=== PATIENT | male | born 1975 | race Caucasian/White ===

== ENCOUNTER 2020-05-08 14:00 | Outpatient (REF) | payer OTHER, SELFPAY | END 2020-05-08 14:01 | disposition home or self-care (01) | LOC: HO.LAB 14:00 | PROVIDERS: Visit Provider Internal Medicine | DX: Z20.828 Contact with and (suspected) exposure to other viral communicable diseases (principal) | CPT/HCPCS: C9803; U0003 ==

== ENCOUNTER 2020-05-19 13:00 | Outpatient (REF) | payer OTHER, SELFPAY | END 2020-05-19 13:01 | disposition home or self-care (01) | LOC: HO.LAB 13:00 | PROVIDERS: Visit Provider Internal Medicine | DX: Z20.828 Contact with and (suspected) exposure to other viral communicable diseases (principal) | CPT/HCPCS: C9803; U0003 ==

== ENCOUNTER 2023-04-12 18:59 | Emergency (ER) | payer OTHER, SELFPAY ==
[2023-04-12 19:24] VITALS: BP 139/83; PULSE 86; RESP 18; TEMP 37.2; O2SAT 96; BMI 23.5
--- NOTE | 2023-04-12 19:25 | ED_ITS ---
HPI - URI/Sore Throat General Chief Complaint: Upper Respiratory Symptoms Stated Complaint: cough, ? covid Time Seen by Provider: 04/12/23 19:50 Source: patient Mode of arrival: ambulatory Limitations: no limitations History of Present Illness HPI Narrative: 48 yo male with no medical history here with complaints of cough, chills, nasal congestion since Monday. COVID test was positive at home but wants clarificat ion. No difficulty breathing, chest pain, vomiting, diarrhea, abdominal pain, neck pain or neck stiffness, fevers, headache. Related Data Allergies Allergy/AdvReac Type Severity Reaction Status Date / Time omeprazole [From PRILOSEC] AdvReac Unknown NAUSEA Verified 04/12/23 19:29 Review of Systems Review of Systems: Yes all other systems are reviewed and are negative Constitutional: Constitutional: Reports no additional constitutional complaints, Denies body ache(s), Denies chills, Denies fever(s), Denies headache(s) and Denies weakness Eyes: Eyes: Reports no additional eye complaints and Denies change in vision ENT: Reports system reviewed and no additional complaints, except as documented, Denies dizziness, Denies headache(s), Denies nasal congestion, Denies nasal discharge and Denies neck pain Cardiovascular: Cardiovascular: Reports no additional cardiovascular complaints, Denies chest pain, Denies leg edema and Denies dyspnea Respiratory: Respiratory: Reports no additional respiratory complaints, Denies cough and Denies dyspnea Gastrointestinal: Gastrointestinal: Reports no additional gastrointestinal complaints, Denies abdominal pain, Denies diarrhea, Denies nausea and Denies vomiting Genitourinary: Genitourinary: Denies urinary incontinence Musculoskeletal: Musculoskeletal: Reports no additional musculoskeletal complaints, Denies back pain, Denies arthralgias, Denies joint swelling, Denies neck pain, Denies numbness and Denies tingling Integumentary/Breasts: Skin/Breast: Reports system reviewed and no additional complaints, except as docu and Denies rash Neurologic: Reports system reviewed and no additional complaints, except as documented, Denies Abnormal speech present, Denies dizziness, Denies headache(s), Denies numbness, Denies tingling and Denies weakness PMFSH Past Medical History Attestation statement: The following information was validated with the patient. Source: old records reviewed and nursing notes reviewed Physical Exam Vital Signs: Vital Signs: Last Vital Signs Temp 98.9 F 04/12/23 19:24 Pulse 86 04/12/23 19:24 Resp 18 04/12/23 19:24 BP 139/83 04/12/23 19:24 Pulse Ox 96 04/12/23 19:24 O2 Del Method Room Air 04/12/23 19:24 BMI result Body Mass Index 23.5 Const: General: cooperative, healthy appearing, comfortable and no acute distress Orientation/consciousness: patient oriented x3 Limitations: no limitations HEENT: Head: Yes normal to inspection Ears: hearing grossly normal bilaterally and TM's normal bilaterally General nose exam: Normal external nose present Face and sinus: Yes normal facial exam Mouth: Normal oral and palatal mucosa present Throat: Yes posterior oropharynx normal, Yes tonsils normal and Yes uvula midline Eyes: General: appearance normal, both eyes and all related structures Pupils: Equal, round and reactive pupils present Neck: Neck: Yes normal visual inspection, Yes full ROM and Yes no lymphadenopathy Chest: Chest palpation & inspection: normal inspection of the chest Resp: Effort & Inspection: normal respiratory effort Auscultation: clear to auscultation bilaterally Cardio: Rate: regular rate Rhythm: regular rhythm Peripheral pulses: Peripheral pulses 2+ throughout GI: Inspection: Yes normal to inspection Palpation (GI): Soft to palpation and nontender Auscultation: normal bowel sounds Back/Spine/Pelvis: Thoracic/Lumbar Spine: thoracic and lumbar spine normal to inspection Skin: General skin exam: no rashes or lesions noted Neuro: General: patient oriented x3, no focal motor deficits and normal sensation to monofilament Cranial nerves: Yes Equal, round and reactive pupils present Cognition (Neuro): normal cognition Speech: No Abnormal speech present Gait exam (Neuro): Normal gait present Motor exam (neuro): 5/5 motor strength present throughout Extrem: General: Yes normal to inspection Course Course Course Narrative: This is a rapid medical exam. Deferred additional HPI, ROS, PE to primary provider. 48 yo male here with complaints of cough, chills, nasal congestion since Monday. COVID test was positive at home but wants clarification. WIll obtain COVID screen. VSS Medical Decision Making Medical Decision Making MDM Narrative: 48 yo male with no medical history here with complaints of cough, chills, nasal congestion since Monday. COVID test was positive at home but wants clarification. No difficulty breathing, chest pain, vomiting, diarrhea, abdominal pain, neck pain or neck stiffness, fevers, headache. Exam is normal Lungs are clear Vital stable Will send testing for COVID Differential Diagnosis Differential Diagnoses: The differential diagnosis associated with the presentation includes COVID, viral syndrome Admission/Observation Consideration of admission/observation: Escalation of care including admission/observation considered COVID positive. No hypoxia or tachypnea requiring supplemental oxygen or advanced imaging or admission Lab Data MDM Lab Attestation statement: I reviewed the patient's lab results. COVID positive Labs: Lab Results 04/12/23 Range/Units 19:31 COVID-19 ([facility]) Positive A (Negative) COVID-19 Clin Com See Note Tests considered The following testing was considered but not selected: No hypoxia or tachypnea to suggest need for chest x-ray Prescription Management I considered prescription management with: Antiviral and Antibiotic Discharge Plan Discharge Clinical Impression: COVID-19 Patient Disposition: Home, Self-Care Instructions: COVID-19 (Coronavirus Disease 2019) (ED) Additional Instructions: Quarantine for 5 days then mask up for additional 5 more days. Take Motrin or Tylenol for any pain or fever Increase fluids, rest Return for chest pain, shortness of breath Referrals: Physician,Unknown J [Primary Care Provider] - 1 week
[2023-04-12 19:46] LABS: COVID-19 Test Positive (Negative); IDNOW Serial# 9DB6401D
== END 2023-04-12 20:00 | disposition home or self-care (01) ==
LOC: HO.ED 19:58
PROVIDERS: Nurse Practitioner Family; Emergency Provider Emergency Medicine
DX: U07.1 COVID-19 (principal)
CPT/HCPCS: 87635; 99282; 99283

== ENCOUNTER 2023-08-06 21:19 | Emergency (ER) | payer OTHER, SELFPAY ==
--- NOTE | ~2023-08-06 | CT_ITS ---
EXAMINATION: HEAD CT WITHOUT CONTRAST MAXILLOFACIAL CT WITHOUT CONTRAST CLINICAL INFORMATION: Blunt trauma. Sports injury. COMPARISON: 07/26/2018 TECHNIQUE: Contiguous axial imaging of the head was performed without the administration of IV contrast. Axial multidetector volumetric images were also obtained through the facial bones without contrast from the frontal sinuses through the mandible. Multiplanar reconstructed images in coronal and sagittal orientations were submitted. This CT examination was performed using dose optimization techniques as appropriate, variously including the following: *Automated exposure control *Adjustment of mA and/or kV according to patient size (this includes techniques or standardized protocols for targeted exams where dose is matched to indication/reason for exam; i.e. extremities or head) *Use of iterative reconstruction technique DOSE: 903 mGy-cm FINDINGS: HEAD: There is no evidence of acute intracranial hemorrhage or territorial infarction. No abnormal mass-effect or midline shift. No extra-axial fluid collections. Iqbal to white matter differentiation is well preserved. The ventricles are normal in size and configuration. There is no abnormal attenuation within the brain parenchyma. The soft tissues and osseous structures are normal. The sinuses and mastoid air cells are clear. MAXILLOFACIAL: There is a mildly comminuted fracture of the nasal bone with leftward deviation of the fragments and surrounding soft tissue swelling. A small fracture of the anterior nasal spine is also noted with rightward displacement of the small fragment. No additional facial fractures are identified. The mandible, maxilla, pterygoid plates, zygomatic arches, paranasal sinus law, and bony orbits are intact. The paranasal sinuses and mastoid air cells remain well-aerated. Orbits appear intact without intraluminal abnormalities. Intraconal and skull fat is normal. Globes appear symmetric. Pharyngeal soft tissues are unremarkable. CT/CT facial bones wo IV con IMPRESSION: 1. No acute intracranial pathology. 2. Mildly comminuted and displaced fractures of the nasal bone and anterior nasal spine.
[2023-08-06 21:24] VITALS: BP 141/77; PULSE 70; RESP 18; TEMP 36.8; O2SAT 97; BMI 21.8
[2023-08-06 23:36] VITALS: BP 141/79; PULSE 74; RESP 17; O2SAT 97
[2023-08-07 00:37] VITALS: BP 144/84; PULSE 58; RESP 18; TEMP 37.1; O2SAT 94
--- NOTE | 2023-08-07 00:50 | ED_ITS ---
HPI - Head Injury General Chief complaint: Head Injury Stated complaint: wasa hit in face w/ basketball, stuffed nose Time Seen by Provider: 08/07/23 00:28 Source: patient Mode of arrival: ambulatory Limitations: no limitations History of Present Illness HPI Narrative: Patient comes to the emergency room complaining of nose pain, sinus pressure. Patient states that 2 days ago patient was playing basketball, he got elbowed by another player in the nose. Patient has epistaxis which he was able to control. Today, patient was playing basketball again and he got hit in the nose again but this time with a basketball. Patient denies loss of consciousness, no epistaxis today. Patient is not on blood thinners. Related Data Previous Rx's Medication Instructions Recorded Lactobacillus rhamnosus GG 15 1 cap PO DAILY #14 caps 08/07/23 billion cell sprinkle capsule (Culturelle) amoxicillin 500 mg-potassium 1 tab PO BID #13 tabs 08/07/23 clavulanate 125 mg tablet (Augmentin) ibuprofen 600 mg tablet 600 mg PO TID PRN fever or pain 08/07/23 #20 tabs Allergies Allergy/AdvReac Type Severity Reaction Status Date / Time omeprazole [From PRILOSEC] AdvReac Unknown NAUSEA Verified 08/06/23 21:24 Review of Systems Review of Systems: Constitutional : No Weight loss, No Fever, No Chills, No Night Sweats, No Fatigue, No Malaise ENT/Mouth : No Hearing loss, No Ear Pain, complaining of nasal congestion, frontal sinus pain, nose pain, resolved epistaxis No Hoarseness, No sore throat, No Rhinorrhea, No Swallowing Difficulty Eyes: No Eye Pain, No Swelling, No Redness, No Foreign Body, No Discharge, No Vision Changes Cardiovascular : No Chest Pain, No SOB, No Dyspnea on Exertion, No Orthopnea, No Edema, No Palpitations Respiratory : No Cough, No Sputum, No Wheezing, No Smoke Exposure, No Dyspnea Gastrointestinal : No Nausea, No Vomiting, No Diarrhea, No Constipation, No abdominal Pain, No Hematochezia, No Melena Genitourinary : no irregular bleeding, No Dysuria, No Urinary Frequency, No Hematuria, No Urinary Incontinence, No Urgency, No Flank Pain, No Urinary Flow Changes, No Hesitancy Musculoskeletal : No joint pain, No Myalgias, No Joint Swelling Skin : No Skin Lesions, No rash Neuro : No Weakness, No Numbness, No Paresthesias, No Loss of Consciousness, No Dizziness, No Headache Psych : No Anxiety/Panic, No Depression, No SI/HI/AH/VH, No Social Issues, Heme/Lymph: No Bruising, No Bleeding,No Lymphadenopathy Endocrine : No Polyuria, No Polydipsia, No Temperature Intolerance PMFSH Social History Social History Advance Directives: No Advance Directives Information Provided: No Physical Exam Vital Signs: Vital Signs: Last Vital Signs Temp 98.8 F 08/07/23 00:37 Pulse 58 08/07/23 00:37 Resp 18 08/07/23 00:37 BP 144/84 H 08/07/23 00:37 Pulse Ox 94 08/07/23 00:37 O2 Del Method Room Air 08/07/23 00:37 BMI result Body Mass Index 21.8 Const: Other: Appearance: Alert. Oriented X3. No acute distress. Eyes: Pupils equal, round and reactive to light. ENT: Pharynx normal. Nasal bridge is mildly swollen, no ecchymosis. Patient has nasal congestion. Patient has sinus pain to palpation over the frontal sinuses and ethmoid sinus Neck: Normal inspection. Neck supple. No lymph nodes noted. No crepitus CVS: Normal heart rate and rhythm. Pulses normal. Normal S1 and S2 Respiratory: No respiratory distress. Breath sounds normal. No Wheezing. No rales Abdomen: Soft and nontender. No rigidity. No distention. Skin: Skin warm and dry. Normal skin color. Normal skin turgor. Extremities: No lower extremity edema. No Lacerations. No Rash Neuro: Oriented X 3. No motor deficit. No sensory deficit. Moving all extremities. No slurred speech. CN 2 through 12 grossly intact Psych: calm, cooperative, normal affect Medical Decision Making Medical Decision Making MDM Narrative: -my interpretation of CT scan of the head and facial bones: No intracranial bleed, slightly displaced fracture of the nasal bone. -patient was given p.o. Augmentin for the combination of nasal fracture and sinusitis. -patient was given IM Toradol for the pain. -patient states that he has an appointment pending next week with his primary care physician Differential Diagnosis Differential Diagnoses: The differential diagnosis associated with the present ation includes (Contusion, concussion, intracranial bleed, Fracture nose) Independent Interpretation I performed an independent interpretation of an: CT Scan Radiology Impression Discussion of test interpretation with radiology: I have reviewed the radiologist's reading. Radiologist Impression: HEAD: There is no evidence of acute intracranial hemorrhage or territorial infarction. No abnormal mass-effect or midline shift. No extra-axial fluid collections. Iqbal to white matter differentiation is well preserved. The ventricles are normal in size and configuration. There is no abnormal attenuation within the brain parenchyma. The soft tissues and osseous structures are normal. The sinuses and mastoid air cells are clear. MAXILLOFACIAL: There is a mildly comminuted fracture of the nasal bone with leftward deviation of the fragments and surrounding soft tissue swelling. A small fracture of the anterior nasal spine is also noted with rightward displacement of the small fragment. No additional facial fractures are identified. The mandible, maxilla, pterygoid plates, zygomatic arches, paranasal sinus law, and bony orbits are intact. The paranasal sinuses and mastoid air cells remain well-aerated. Orbits appear intact without intraluminal abnormalities. Intraconal and skull fat is normal. Globes appear symmetric. Pharyngeal soft tissues are unremarkable. CT/CT head/brain wo IV con IMPRESSION: 1. No acute intracranial pathology. 2. Mildly comminuted and displaced fractures of the nasal bone and anterior nasal spine. Discharge Plan Discharge Clinical Impression: Closed fracture nose, Sinusitis Patient Disposition: Home, Self-Care Instructions: Nasal Fracture (ED), Sinusitis (ED) Additional Instructions: Please follow-up with your primary care physician tomorrow. If you have any worsening or new symptoms, please return to the emergency room or call 911 Prescriptions: New amoxicillin-pot clavulanate [Augmentin] 500-125 mg tablet 1 tab PO BID Qty: 13 0RF Culturelle 15 billion cell capsule, sprinkle 1 cap PO DAILY Qty: 14 0RF ibuprofen 600 mg tablet 600 mg PO TID PRN (Reason: fever or pain) Qty: 20 0RF Stand Alone Forms: Work/School Release
[2023-08-07] MEDS: Ketorolac Tromethamine 60 MG/2 ML VIAL IM (01:19)
[2023-08-07] MEDS: Amoxicillin/Potassium Clav 500 MG TABLET PO (01:19)
[2023-08-07 01:23] VITALS: BP 124/83; PULSE 61; RESP 18; TEMP 36.9
== END 2023-08-07 01:43 | disposition home or self-care (01) ==
PROVIDERS: Emergency Provider Emergency Medicine
DX: S02.2XXA Fracture of nasal bones, initial encounter for closed fracture (principal); J32.9 Chronic sinusitis, unspecified; W50.0XXA Accidental hit or strike by another person, initial encounter; Y93.67 Activity, basketball; Y92.9 Unspecified place or not applicable; Y99.9 Unspecified external cause status
CPT/HCPCS: 70450; 70486; 96372; 99284; J1885

== ENCOUNTER 2024-02-10 11:35 | Emergency (ER) | payer OTHER, SELFPAY ==
--- NOTE | ~2024-02-10 | XR_ITS ---
EXAMINATION: XR KNEE, RIGHT CLINICAL INFORMATION: Right knee pain. COMPARISON: None available. TECHNIQUE: Four views of the right knee. FINDINGS: No acute fracture or dislocation. Mild medial compartment joint space narrowing. Tiny medial and patellofemoral compartment marginal osteophytes. No osseous erosion. Small tortuosity enthesophyte. Trace joint effusion. XR/XR knee RT 4V IMPRESSION: Mild medial and patellofemoral compartment osteoarthritis. Trace joint effusion. Electronically signed by: Doug Spain MD 02/10/2024 01:14 PM EDT
[2024-02-10 11:38] VITALS: BP 154/64; PULSE 55; RESP 16; TEMP 36.6; O2SAT 99; BMI 22.5
--- NOTE | 2024-02-10 11:40 | ED.LOWEXIN ---
HPI - Extremity Injury (Lower) General Chief Complaint: Extremity Injury, Lower Stated Complaint: knee pain Time Seen by Provider: 02/10/24 11:58 Source: patient and RN notes reviewed Mode of arrival: ambulatory Limitations: no limitations History of Present Illness ED Provider: Neelam Orellana PA-C HPI Narrative: This is a 48-year-old male, with no known medical problems, who presents emergency department with complaints of right knee pain x2 days. Patient denies any recent trauma or injury however he does report that he believes his pants were too tight and caused him to have pain in his knee. He states that he plays basketball on a regular basis, denies any known twisting injury, or falls. He reports pain worsens with palpation. He denies any fevers, chills, or injury to the knee in the past. No other complaints or concerns at this time. MD complaint: knee injury Onset (ago): day(s) Type of Injury: unknown Associated symptoms: swelling Other symptoms: none Related Data Previous Rx's ?Medication ?Instructions ?Recorded Lactobacillus rhamnosus GG 15 1 cap PO DAILY #14 caps 08/07/23 billion cell sprinkle capsule (Culturelle) amoxicillin 500 mg-potassium 1 tab PO BID #13 tabs 08/07/23 clavulanate 125 mg tablet (Augmentin) ibuprofen 600 mg tablet 600 mg PO TID PRN fever or pain 08/07/23 #20 tabs acetaminophen 650 mg 650 mg PO Q8H PRN pain #30 tabs 02/10/24 tablet,extended release (Tylenol 8 Hour) ibuprofen 600 mg tablet 600 mg PO Q6H PRN pain #30 tabs 02/10/24 Allergies Allergy/AdvReac Type Severity Reaction Status Date / Time omeprazole [From PRILOSEC] AdvReac Unknown NAUSEA Verified 02/10/24 11:41 Review of Systems Review of Systems: Yes all other systems are reviewed and are negative Constitutional: Constitutional: Reports as per HPI Physical Exam Vital Signs: Vital Signs: Last Vital Signs Temp 97.9 F 02/10/24 13:54 Pulse 55 02/10/24 13:54 Resp 16 02/10/24 13:54 BP 154/64 H 02/10/24 13:54 Pulse Ox 99 02/10/24 13:54 O2 Del Method Room Air 09/21/24 13:54 BMI result Body Mass Index 22.5 Const: General: cooperative, comfortable and no acute distress Orientation/consciousness: patient oriented x3 Limitations: no limitations HEENT: Head: Yes normal to inspection, Yes normocephalic and Yes atraumatic Ears: hearing grossly normal bilaterally General nose exam: Normal external nose present Face and sinus: Yes normal facial exam Mouth: Normal oral and palatal mucosa present, oropharynx normal and moist mucous membranes Throat: Yes posterior oropharynx normal Eyes: General: appearance normal, both eyes and all related structures Eyelids: Yes eyelids normal Conjunctivae: conjunctivae normal Sclerae: sclerae normal Pupils: Equal, round and reactive pupils present EOM: EOMs intact bilaterally Neck: Neck: Yes normal visual inspection, Yes full ROM and Yes no lymphadenopathy Lymphatic: no lymphadenopathy noted Chest: Chest palpation & inspection: normal inspection of the chest Resp: Effort & Inspection: normal respiratory effort and able to speak in complete sentences Auscultation: clear to auscultation bilaterally, no crackles, no rales, no rhonchi and no wheezes Cardio: Rate: regular rate Rhythm: regular rhythm Heart sounds: S1 normal heart sound present and S2 normal heart sound present GI: Inspection: Yes normal to inspection Skin: General skin exam: no rashes or lesions noted Trauma: no lacerations or abrasions Wounds: no wounds Neuro: General: patient oriented x3 and moves all extremities Cranial nerves: Yes Equal, round and reactive pupils present Extrem: Other: Right knee, nonerythematous, with mild tenderness palpation along the medial and lateral joint line, full range of motion. No joint laxity with varus and valgus strain. Negative anterior-posterior drawer test. General: Yes normal to inspection Right upper extremity: normal to inspection Left upper extremity: normal to inspection Right lower extremity: normal to inspection Left lower extremity: normal to inspection Course Course Course Narrative: This is a rapid medical exam performed by [place] NP: Additional HPI, ROS, PE not included below will be deferred to primary provider. Patient is a 48-year-old male presenting to the ED with right knee pain after playing basketball yesterday. Denies twisting knee or falling onto it. Plan: xray Medical Decision Making Medical Decision Making MDM Narrative: This is a 48-year-old male, with no known medical problems, who presents emergency department with complaints of right knee pain. Unknown injury. Differential diagnoses include knee strain, sprain, contusion. Less likely septic arthritis as patient's knee is nonerythematous, with full range of motion. Will obtain x-rays to rule out any bony abnormalities. X-rays revealing mild medial and patellofemoral compartment osteoarthritis. There is a trace joint effusion discussed findings with patient. Given Rashad wrap, and advised to follow-up with PCP as needed. Patient understands agrees with plan. Patient stable for discharge. Differential Diagnosis Differential Diagnoses: The differential diagnosis associated with the presentation includes See above Radiology Impression Discussion of test interpretation with radiology: I have reviewed the radiologist's reading. Radiologist Impression: XR/XR knee RT 4V IMPRESSION: Mild medial and patellofemoral compartment osteoarthritis. Trace joint effusion. Electronically signed by: Doug Spain MD 02/10/2024 01:14 PM EDT RP Workstation: [id number] Dictated By: Doug Spain MD Discharge Plan Discharge Clinical Impression: Acute pain of right knee Patient Disposition: Home, Self-Care Instructions: Knee Pain (ED), Arthralgia (ED) Additional Instructions: You were seen in the emergency department for right knee pain and swelling. Your x-ray shows some evidence of mild arthritis. This is a normal finding. Please rest, ice, use Rashad wrap, and elevate your knee as needed for pain and symptoms. You can alternate between ibuprofen and or Tylenol as needed for pain. If you continue to have ongoing issues with your knee, you can follow-up with the orthopedic team, you need to call to make an appointment. If any new or worsening symptoms occur including but not limited to inability to move your leg, fevers, chills, redness, worsening swelling, please return for re-evaluation. Prescriptions: New ibuprofen 600 mg tablet 600 mg PO Q6H PRN (Reason: pain) Qty: 30 0RF acetaminophen [Tylenol 8 Hour] 650 mg tablet extended release 650 mg PO Q8H PRN (Reason: pain) Qty: 30 0RF No Action amoxicillin-pot clavulanate [Augmentin] 500-125 mg tablet 1 tab PO BID Qty: 13 0RF Culturelle 15 billion cell capsule, sprinkle 1 cap PO DAILY Qty: 14 0RF ibuprofen 600 mg tablet 600 mg PO TID PRN (Reason: fever or pain) Qty: 20 0RF Referrals: [facility] [place]Provider Group] Neelam Orellana PA [Emergency Midlevel Provider] - Interventions: ED Discharge Assessment Last Done: 02/10/24 13:54 Discharge Date/Time: 02/10/24 13:54 Print Language: Mongolian
[2024-02-10 13:54] VITALS: BP 154/64; PULSE 55; RESP 16; TEMP 36.6; O2SAT 99
== END 2024-02-10 13:54 | disposition home or self-care (01) ==
PROVIDERS: Emergency Provider Emergency Medicine
DX: M25.561 Pain in right knee (principal)
CPT/HCPCS: 73564; 99283

== ENCOUNTER 2024-03-07 08:40 | Outpatient (REF) | payer OTHER, SELFPAY | END 2024-03-07 08:41 | disposition home or self-care (01) | LOC: HO.HOSX 08:40 | PROVIDERS: Visit Provider Physician Assistant | DX: M25.561 Pain in right knee (principal); M94.261 Chondromalacia, right knee | CPT/HCPCS: 73560; 99202 ==

== ENCOUNTER 2024-03-07 10:05 | Outpatient (AMB) | payer OTHER, SELFPAY ==
--- NOTE | 2024-03-07 10:31 | MHC.OFFVIS ---
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 Patient reports that he was hit in the knee while playing basketball. He was seen at [facility] [place] [facility] where xrays were taken and referred to orthopedics. He has discomfort that feels like a pulling sensation located at the anterior aspect of knee. Denies numbness or tingling. 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 He reports he was hit in the knee while playing basketball. He was seen at ER where x-rays were performed and he was referred to our office. He currently states he has discomfort and a pulling sensation at the anterior aspect of his knee. He denies any numbness or tingling. [facility] Social History (Updated 03/07/24 @ 10:37 by ROWENA Tripathi) Patient Tobacco Use Status: Former Tobacco user Current occupational status: unemployed Review of Systems Const All systems reviewed & are unremarkable except as noted in HPI and below Physical Exam Vital Signs: BMI result Body Mass Index 22.5 Const General: cooperative, healthy appearing, comfortable, no acute distress, well developed and alert Orientation/consciousness: patient oriented x3 HEENT Head: Yes normal to inspection, Yes normocephalic and Yes atraumatic Eyes General: appearance normal, both eyes and all related structures Resp Effort & Inspection: normal respiratory effort and able to speak in complete sentences Cardio Rate: regular rate Peripheral pulses: Peripheral pulses 2+ throughout GI Palpation (GI): Soft to palpation Skin Lesions: no lesions Rashes: no rashes Neuro General: patient oriented x3 Extrem Other: Right knee: Skin intact, no erythema or joint effusion. No tenderness along the medial and lateral joint line. Full ROM with crepitus. Negative Dimitri?s. No ligamentous laxity. NVI. ? Results Reviewed Results Reviewed: Xrays were obtained in the office today and personally reviewed by me of the right knee show mild patellar lateralization Assessment & Plan Assessment & Plan (1) Chondromalacia, right knee: Code(s): M94.261 - Chondromalacia, right knee Category: Medical Plan He was fit for a Genumed knee brace. He will wear this with activities. He can increase activities as tolerated and if symptoms persist or worsen, patient will contact the office, otherwise follow-up as needed. Orders: Orders XR knee RT 1V Today M25.561 - Pain in right knee Patient Instructions: Scribed for David Guzman PA-C, by Richard Booth medical staff services manager, on 03/07/2024 at 10:00 AM EST.? I, David Guzman PA-C, have personally reviewed and agree with the information entered by the scribe. Coding Level of Care Code New Pt Level 3 (42582) Complex EM visit Add On G2211 Diagnoses Chondromalacia, right knee M94.261
[2024-03-07 10:40] VITALS: BMI 22.5
== END 2024-03-07 11:54 | disposition home or self-care (01) ==
PROVIDERS: Visit Provider Physician Assistant
DX: M94.261 Chondromalacia, right knee (principal)
CPT/HCPCS: 99203; G2211

== ENCOUNTER 2024-10-09 16:13 | Emergency (ER) | payer OTHER, SELFPAY ==
--- NOTE | ~2024-10-09 | XR_ITS ---
EXAMINATION: XR HIP, LEFT CLINICAL INFORMATION: L upper thigh pain COMPARISON: None available. TECHNIQUE: AP pelvis, and 2 views of the left hip. FINDINGS: No fracture. Alignment is anatomic. Hip joint space is maintained. Soft tissues are unremarkable. XR/XR hip LT w PEL1V IMPRESSION: Normal left hip. Electronically signed by: Micah Oconnor MD 10/09/2024 04:33 PM EDT RP
--- NOTE | 2024-10-09 16:15 | ED.LOWEXIN ---
HPI - Extremity Injury (Lower) General Chief Complaint: Extremity Injury, Lower Stated Complaint: L Side Pain, L Leg Pain Time Seen by Provider: 10/09/24 16:37 Source: patient, RN notes reviewed and old records reviewed Mode of arrival: ambulatory History of Present Illness ED Provider: Isa Alvarez PA-C HPI Narrative: 49-year-old male with no significant past medical history presenting to the ED complaining of left upper thigh/buttock pain x 3 days s/p playing basketball yesterday and on Monday. Admits to repetitive jumping. Denies known injury, trauma, fall, numbness, tingling, weakness, incontinence/retention Related Data Previous Rx's ?Medication ?Instructions ?Recorded Lactobacillus rhamnosus GG 15 1 cap PO DAILY #14 caps 08/07/23 billion cell sprinkle capsule (Culturelle) amoxicillin 500 mg-potassium 1 tab PO BID #13 tabs 08/07/23 clavulanate 125 mg tablet (Augmentin) ibuprofen 600 mg tablet 600 mg PO TID PRN fever or pain 08/07/23 #20 tabs acetaminophen 650 mg 650 mg PO Q8H PRN pain #30 tabs 02/10/24 tablet,extended release (Tylenol 8 Hour) ibuprofen 600 mg tablet 600 mg PO Q6H PRN pain #30 tabs 02/10/24 acetaminophen 500 mg tablet 500 mg PO Q6H PRN fever or pain 10/09/24 (Tylenol Extra Strength) #14 tabs cyclobenzaprine 5 mg tablet 5 mg PO Q8H PRN pain (scale score 10/09/24 7-10) 5 days #14 tabs lidocaine 5 % topical patch 1 patch topical DAILY PRN pain #30 10/09/24 (Lidoderm) ea naproxen 500 mg tablet 500 mg PO BID PRN pain 10 days #20 10/09/24 tabs Allergies Allergy/AdvReac Type Severity Reaction Status Date / Time omeprazole [From PRILOSEC] AdvReac Unknown NAUSEA Verified 10/09/24 16:18 Review of Systems Review of Systems: Yes all other systems are reviewed and are negative Constitutional: Constitutional: Reports as per [facility] Past Medical History Attestation statement: The following information was validated with the patient. Source: old records reviewed Social History Social History Patient Tobacco Use Status: Former Tobacco user Advance Directives: No Advance Directives Information Provided: Yes Do you have a plan to hurt others: No Plan Current occupational status: unemployed Physical Exam Vital Signs: Vital Signs: Last Vital Signs Temp 98.2 F 10/09/24 16:16 Pulse 65 10/09/24 16:16 Resp 18 10/09/24 16:16 BP 134/71 10/09/24 16:16 Pulse Ox 99 10/09/24 16:16 O2 Del Method Room Air 10/09/24 16:16 BMI result Body Mass Index 23.2 Const: General: cooperative, healthy appearing and no acute distress Orientation/consciousness: patient oriented x3 Limitations: no limitations HEENT: Head: Yes normal to inspection and Yes atraumatic Ears: hearing grossly normal bilaterally General nose exam: Normal external nose present Face and sinus: Yes normal facial exam Eyes: General: appearance normal, both eyes and all related structures EOM: EOMs intact bilaterally Neck: Neck: Yes normal visual inspection and Yes no meningeal signs Resp: Effort & Inspection: normal respiratory effort and no respiratory distress Cardio: Rate: regular rate : General: Yes no CVA tenderness Back/Spine/Pelvis: Other: No midline cervical/thoracic/lumbar spinous tenderness/step-off or deformity. + left buttock reproducible tenderness Back: no CVA tenderness Skin: Rashes: no rashes Wounds: no wounds Neuro: General: patient oriented x3, tone normal and no meningeal signs Cranial nerves: Yes CN's II-XII intact bilaterally Gait exam (Neuro): Antalgic gait present Motor exam (neuro): 5/5 motor strength present throughout Extrem: Other: No swelling, rash, erythema. + reproducible IT band tenderness General: Yes normal to inspection Course Course Course Narrative: This is a Rapid Medical Exam performed in triage by Isa Alvarez PA-C. Full HPI, ROS and PE to be performed by primary ED provider. 49-year-old male presenting to the ED c/o L thigh pain s/p playing basketball yesterday & Monday. denies fall. Admits was jumping. PE: ambulating w/limping gait, no deformity, +L upper thigh reproducible tenderness Plan: XR 1638--XR hip LT w PEL1V IMPRESSION: Normal left hip. Results discussed with patient including worrisome signs and symptoms and strict return precautions, and when to return to the emergency department. They verbalized understanding and feel safe for discharge at this time. Medical Decision Making Medical Decision Making MDM Narrative: 49-year-old male with no significant past medical history presenting to the ED complaining of left upper thigh/buttock pain x 3 days s/p playing basketball yesterday and on Monday. On exam vital signs stable, NAD, nontoxic appearing, physical exam as noted above, walking with antalgic gait. Reproducible IT band tenderness. No appreciable deformity. No midline spinous tenderness or red flag symptoms. Concern for MSK pain/strain vs tendinopathy vs ligamental injury Plan: X-ray, PCP follow up Please refer to course for remaining clinical decision making, interpretation of labs/imaging results, and discussions with consultants and/or family members. Differential Diagnosis Differential Diagnoses: The differential diagnosis associated with the presentation includes As above Independent Interpretation I performed an independent interpretation of an: Plain X-Ray Radiology Impression Discussion of test interpretation with radiology: I have reviewed the radiologist's reading. External Record Review External record reviewed: Inpatient record, Office record, Outpatient record, Prior outpatient labs, Prior outpatient radiology, Primary care record and Outside ED record Tests considered The following testing was considered but not selected: As above Prescription Management I considered prescription management with: Pain Medication Chronic Conditions Patient?s care impacted by: Other Social Determinants Patient?s care significantly limited by Social Determinants of Health including: Other Social Determinant of Health Discharge Plan Discharge Clinical Impression: Muscle strain, Iliotibial band syndrome Patient Disposition: Home, Self-Care Instructions: Muscle Strain (DC) Additional Instructions: Your pain is likely musculoskeletal Flexeril is a muscle relaxer, take at night as it makes you drowsy, do not drive, drink alcohol, or operate machinery while taking it Naproxen as an anti-inflammatory / pain medication, take with food Lidoderm patches are numbing patches, apply to painful area In addition take Tylenol at home If symptoms persist or worsen, pain becomes unbearable, you developed urinary retention or incontinence, or weakness return to the ED Prescriptions: New acetaminophen [Tylenol Extra Strength] 500 mg tablet 500 mg PO Q6H PRN (Reason: fever or pain) Qty: 14 0RF lidocaine [Lidoderm] 5 % adhesive patch,medicated 1 patch topical DAILY MDD remove after 12 hours PRN (Reason: pain) Qty: 30 0RF Rx Instructions: leave on most painful area for up to 12 hrs naproxen 500 mg tablet 500 mg PO BID PRN (Reason: pain) 10 Days Qty: 20 0RF cyclobenzaprine 5 mg tablet 5 mg PO Q8H PRN (Reason: pain (scale score 7-10)) 5 Days Qty: 14 0RF No Action ibuprofen 600 mg tablet 600 mg PO Q6H PRN (Reason: pain) Qty: 30 0RF acetaminophen [Tylenol 8 Hour] 650 mg tablet extended release 650 mg PO Q8H PRN (Reason: pain) Qty: 30 0RF amoxicillin-pot clavulanate [Augmentin] 500-125 mg tablet 1 tab PO BID Qty: 13 0RF Culturelle 15 billion cell capsule, sprinkle 1 cap PO DAILY Qty: 14 0RF ibuprofen 600 mg tablet 600 mg PO TID PRN (Reason: fever or pain) Qty: 20 0RF Referrals: Physician,Unknown J [Primary Care Provider] - Interventions: ED Discharge Assessment Last Done: 10/09/24 16:49 Discharge Date/Time: 10/09/24 16:50 Print Language: Uzbek
[2024-10-09 16:16] VITALS: BP 134/71; PULSE 65; RESP 18; TEMP 36.8; O2SAT 99; BMI 23.2
[2024-10-09 16:49] VITALS: BP 134/71; PULSE 65; RESP 18; TEMP 36.8; O2SAT 99
== END 2024-10-09 16:50 | disposition home or self-care (01) ==
PROVIDERS: Emergency Provider Emergency Medicine
DX: M76.32 Iliotibial band syndrome, left leg (principal); M79.652 Pain in left thigh; R10.2 Pelvic and perineal pain; M25.552 Pain in left hip; Z87.891 Personal history of nicotine dependence
CPT/HCPCS: 73502; 99282; 99283

== ENCOUNTER → 2024-10-09 16:17 | Outpatient (BNV) | payer OTHER, SELFPAY | PROVIDERS: Emergency Provider Emergency Medicine; Visit Provider Radiology Diagnostic Radiology | DX: M25.552 Pain in left hip (principal) | CPT/HCPCS: 73502 ==

== ENCOUNTER 2024-11-12 17:03 | Emergency (ER) | payer OTHER, SELFPAY ==
[2024-11-12 17:45] VITALS: BP 141/87; PULSE 61; RESP 16; TEMP 37.4; O2SAT 96; BMI 22.9
--- NOTE | 2024-11-12 17:48 | ED_ITS ---
HPI - Wound/Laceration General Chief Complaint: General Medical Stated Complaint: swollen nose and upper lip Time Seen by Provider: 11/13/24 01:34 Source: patient, RN notes reviewed and old records reviewed Mode of arrival: ambulatory Limitations: no limitations History of Present Illness ED Provider: Parveen HPI narrative: 49-year-old male presents for evaluation of an abscess to his left nostril. He reports that it has been there for about 4 days. He denies any trauma to the area. Denies any cocaine abuse. Denies any fevers or chills. He reports that he put hydrogen peroxide on the area without any improvement. Related Data Previous Rx's ?Medication ?Instructions ?Recorded Lactobacillus rhamnosus GG 15 1 cap PO DAILY #14 caps 08/07/23 billion cell sprinkle capsule (Culturelle) amoxicillin 500 mg-potassium 1 tab PO BID #13 tabs clavulanate 125 mg tablet (Augmentin) ibuprofen 600 mg tablet 600 mg PO TID PRN fever or p ain 08/07/23 #20 tabs acetaminophen 650 mg 650 mg PO Q8H PRN pain #30 t abs 02/10/24 tablet,extended release (Tylenol 8 Hour) ibuprofen 600 mg tablet 600 mg PO Q6H PRN pain #30 t abs 02/10/24 acetaminophen 500 mg tablet 500 mg PO Q6H PRN fever or pain 10/09/24 (Tylenol Extra Strength) #14 tabs cyclobenzaprine 5 mg tablet 5 mg PO Q8H PRN pain (scal e score 10/09/24 7-10) 5 days #14 tabs lidocaine 5 % topical patch 1 patch topical DAILY PRN pain #30 10/09/24 (Lidoderm) ea naproxen 500 mg tablet 500 mg PO BID PRN pain 10 da ys #20 10/09/24 tabs cephalexin 500 mg capsule 500 mg PO QID #28 caps 11/13 mupirocin 2 % topical ointment 1 appl topical TID 1 we ek #15 grams 11/13/24 (Centany) Allergies Allergy/AdvReac Type Severity Reaction Status Date / Time omeprazole (From PRILOSEC) AdvReac Unknown NAUSEA Verified 11/12/24 17:47 Review of Systems ENT: Comments: nasal abscess PMFSH Social History Social History Patient Tobacco Use Status: Former Tobacco user Smoked in Last 30 Days: No Use of substances other than those prescribed or required for medical reasons: No Advance Directives: No Advance Directives Information Provided: Yes Do you have a plan to hurt others: No Plan Current occupational status: unemployed Physical Exam Vital Signs: Vital Signs: Last Vital Signs Temp 98.0 F 11/13/24 03:40 Pulse 56 11/13/24 03:40 Resp 18 11/13/24 03:40 BP 132/84 11/13/24 03:40 Pulse Ox 97 11/13/24 03:40 O2 Del Method Room Air 11/13/24 03:40 BMI result Body Mass Index 22.9 HEENT: Other: There was a 1 cm indurated lesion above the left upper lip in the area of the left nostril. There is some purulent drainage. Minimal surrounding erythema. No septal defect Course Course Course Narrative: RME: Michaela Malin PA-C 11/12/2024: 548 pm will defer full ROS and PE to treating provider Left nare: abscess apprx 1cm, firm ttp, but white/yellow head present; would severo efit from localized lancing to help, with PO abx, does not appear septic or ill, deferred labs. no trauma Medications Administered Discontinued Medications Generic Name Dose Route Start Last Admin Trade Name Anjali PRN Reason Stop Dose Admin Acetaminophen 975 mg 11/13/24 02:39 11/13/24 02:47 Acetaminophen 325 Mg Tablet PO 11/13/24 02:40 975 mg ONCE ONE Administration Cephalexin HCl 500 mg 11/13/24 02:17 11/13/24 02:32 Cephalexin 500 Mg Capsule PO 11/13/24 02:18 500 mg ONCE ONE Administration Lidocaine HCl 2 ml 11/13/24 02:17 11/13/24 03:01 Lidocaine Hcl 1 % Mpf 2 Ml Vial INFILTRATI 11/13/24 02:18 2 ml ONCE ONE Administration Lidocaine/Epinephrine/Tetracaine 2 ml 11/13/24 02:16 11/13/24 02:33 Lidocaine/Racepinep/Tetracaine 3 Ml Gel.Pf.Mary TOPICAL 11/13/24 02:17 2 ml ONCE ONE Administration Medical Decision Making Medical Decision Making MDM Narrative: 49-year-old male presents for evaluation of a mass/abscess to his left nostril. Plan for incision and drainage, see procedure note. LET gel applied Procedures Abscess I/D Site: other (left nostril) Side (if applicable): left Local Anesthetic: lidocaine 1% Amount of anesthesia used (mL): 2 Technique: needle aspiration Amount of fluid expressed (mL): 1 Sent for culture/gram staining?: No Irrigation: No Packing used?: none Discharge Plan Discharge Clinical Impression: Abscess of nose Patient Disposition: Home, Self-Care Instructions: Abscess (ED) Additional Instructions: Apply warm compresses to the area every 4 hours for 10 minutes. Take cephalexin 4 times daily for 1 week. Use the Bactroban ointment as prescribed for 1 week Follow-up with your primary doctor, return for new or worsening symptoms Prescriptions: New cephalexin 500 mg capsule 500 mg PO QID Qty: 28 0RF mupirocin [Centany] 2 % ointment 1 appl topical TID 7 Days Qty: 15 0RF No Action ibuprofen 600 mg tablet 600 mg PO Q6H PRN (Reason: pain) Qty: 30 0RF acetaminophen [Tylenol 8 Hour] 650 mg tablet extended release 650 mg PO Q8H PRN (Reason: pain) Qty: 30 0RF amoxicillin-pot clavulanate [Augmentin] 500-125 mg tablet 1 tab PO BID Qty: 13 0RF Culturelle 15 billion cell capsule, sprinkle 1 cap PO DAILY Qty: 14 0RF ibuprofen 600 mg tablet 600 mg PO TID PRN (Reason: fever or pain) Qty: 20 0RF acetaminophen [Tylenol Extra Strength] 500 mg tablet 500 mg PO Q6H PRN (Reason: fever or pain) Qty: 14 0RF lidocaine [Lidoderm] 5 % adhesive patch,medicated 1 patch topical DAILY MDD remove after 12 hours PRN (Reason: pain) Qty: 30 0RF Rx Instructions: leave on most painful area for up to 12 hrs naproxen 500 mg tablet 500 mg PO BID PRN (Reason: pain) 10 Days Qty: 20 0RF cyclobenzaprine 5 mg tablet 5 mg PO Q8H PRN (Reason: pain (scale score 7-10)) 5 Days Qty: 14 0RF Interventions: ED Discharge Assessment Last Done: 11/13/24 03:40 Discharge Date/Time: 11/13/24 03:40 Print Language: Ukrainian
[2024-11-12 23:32] VITALS: BP 142/86; PULSE 52; RESP 16; O2SAT 97
[2024-11-13] MEDS: cephALEXin 500 MG CAPSULE PO (02:32)
[2024-11-13] MEDS: Lidocaine/Racepinep/Tetracaine 3 ML GEL.PF.APP 2 ML TOPICAL (02:33)
[2024-11-13] MEDS: Acetaminophen 325 MG TABLET 975 MG PO (02:47)
[2024-11-13] MEDS: Lidocaine HCl 1 % MPF 2 ML VIAL INFILTRATI (03:01)
[2024-11-13 03:34] VITALS: BP 132/84; PULSE 56; RESP 18; TEMP 36.7; O2SAT 97
[2024-11-13 03:40] VITALS: BP 132/84; PULSE 56; RESP 18; TEMP 36.7; O2SAT 97
== END 2024-11-13 03:40 | disposition home or self-care (01) ==
PROVIDERS: Emergency Provider Emergency Medicine
DX: J34.0 Abscess, furuncle and carbuncle of nose (principal)
CPT/HCPCS: 10160; 99284; J2003